=== PATIENT | male | born 1965 | race Caucasian/White ===

== ENCOUNTER → 2017-08-12 | Outpatient (CLI) | payer OTHER ==
[~2017-08-12] MED LIST: REGADENOSON 0.4 MG/5 ML DISP.SYRIN. IV
== END | disposition home or self-care (01) ==
LOC: PCVCIMAG 09:53
DX: R06.09 Other forms of dyspnea (principal); M79.609 Pain in unspecified limb; I10 Essential (primary) hypertension; F17.210 Nicotine dependence, cigarettes, uncomplicated; Z82.49 Family history of ischemic heart disease and other diseases of the circulatory system
CPT/HCPCS: 78452; 93017; 93306; A9500; J2785

== ENCOUNTER → 2017-08-19 | Outpatient (CLI) | payer OTHER ==
[~2017-08-19] MED LIST changes: +DIAZEPAM 10 MG TABLET.; +EPINEPHrine 1 MG/ML VIAL; +HEPARIN SODIUM 5,000 UNIT/ML VIAL for PCVC.; +HEPARIN for ARTERIAL LINE 1,500 ML; +IODIXANOL 270 MG/ML 100 ML VIAL.; +IOHEXOL 350 MG/ML 100 ML VIAL.; +IV NORMAL SALINE 500ML BAG 500 ML; +LIDOCAINE 1% Multi-Dose 50 ML VIAL.; +MIDAZOLAM HCL/PF 2 MG/2 ML VIAL.; -REGADENOSON 0.4 MG/5 ML DISP.SYRIN. IV; +WATER FOR INJECTION,STERILE 20 ML VIAL. IJ; +ceFAZolin SODIUM 1 GM VIAL; +fentaNYL PF VIAL 100 MCG/2 ML VIAL; +hydrALAZINE 20 MG/ML VIAL.
== END | disposition home or self-care (01) ==
LOC: PCVCIMAG 08:23
DX: I25.10 Atherosclerotic heart disease of native coronary artery without angina pectoris (principal); I70.248 Atherosclerosis of native arteries of left leg with ulceration of other part of lower leg; L97.829 Non-pressure chronic ulcer of other part of left lower leg with unspecified severity; I70.291 Other atherosclerosis of native arteries of extremities, right leg; I70.1 Atherosclerosis of renal artery; I10 Essential (primary) hypertension; I87.1 Compression of vein
CPT/HCPCS: 36246; 36252; 75716; 76937; 93458; 93970; 99152; 99153; C1751; C1760; C1769; C1894; J0171; J0360; J0690; J1644; J2250; J3010; J7040; Q9967

== ENCOUNTER → 2017-08-20 | Outpatient (CLI) | payer OTHER ==
[~2017-08-20] MED LIST changes: +ASPIRIN 325 MG TABLET; +CLOPIDOGREL BISULFATE 75 MG TABLET; -EPINEPHrine 1 MG/ML VIAL; -HEPARIN for ARTERIAL LINE 1,500 ML; -IODIXANOL 270 MG/ML 100 ML VIAL.; +IOHEXOL 300 MG/ML 100ML VIAL.; -IOHEXOL 350 MG/ML 100 ML VIAL.; -LIDOCAINE 1% Multi-Dose 50 ML VIAL.; -hydrALAZINE 20 MG/ML VIAL.
== END | disposition home or self-care (01) ==
LOC: PCVCINTER 11:11
DX: I87.1 Compression of vein (principal); I87.2 Venous insufficiency (chronic) (peripheral); I87.303 Chronic venous hypertension (idiopathic) without complications of bilateral lower extremity
CPT/HCPCS: 36012; 37238; 37239; 37252; 37253; 75822; 75825; 76937; 99152; 99153; C1725; C1751; C1753; C1769; C1876; C1894; J0690; J1644; J2250; J3010; J7040; Q9967

== ENCOUNTER → 2017-09-23 | Outpatient (CLI) | payer OTHER | END | disposition home or self-care (01) | LOC: PCVCIMAG 10:06 | DX: I87.1 Compression of vein (principal); I10 Essential (primary) hypertension; I25.10 Atherosclerotic heart disease of native coronary artery without angina pectoris; E78.00 Pure hypercholesterolemia, unspecified; Z79.899 Other long term (current) drug therapy; Z79.82 Long term (current) use of aspirin | CPT/HCPCS: 93970; 93976; G0463 ==

== ENCOUNTER → 2018-06-02 | Outpatient (CLI) | payer OTHER ==
--- NOTE | 2018-06-02 09:02 | PCVCIMAG ---
EXAM: VENOUS DUPLEX INFERIOR VENA CAVA AND BILATERAL ILIAC VEINS INDICATION: Leg pain and swelling. FINDINGS: Inferior vena cava: IVC is patent where visualized. Right iliac veins: The common iliac and external iliac veins are patent with good flow throughout prior stents. The common femoral vein is patent. Left iliac veins: The common and external iliac veins are patent with satisfactory flow. Common femoral vein is patent. IMPRESSION: Inferior vena cava, right and left iliac veins, and right and left common femoral veins are patent without significant stenosis, scarring, or extrinsic compression. Previous right common and external iliac vein stents maintaining satisfactory patency. LOC:[id number]
== END | disposition home or self-care (01) ==
LOC: PCVCIMAG 08:20
PROVIDERS: ATTEND Nuclear Medicine Nuclear Cardiology
DX: I87.1 Compression of vein (principal); M79.89 Other specified soft tissue disorders
CPT/HCPCS: 93976

== ENCOUNTER → 2018-12-30 | Outpatient (CLI) | payer OTHER ==
--- NOTE | 2018-12-30 16:50 | PCVCIMAG ---
APPROVED REPORT Study performed: 12/30/2018 15:31:03 Exam: Stress Echocardiogram Indication: CAD s/p PCI, Chest pain, obesity, htn Patient Location: Echo lab Stress Nurse: Emily Ascencio RN Status: routine Ht: 5 ft 10 in HR: 78 bpm BP: 124/68 mmHg Rhythm: NSR Procedure The patient underwent an Exercise Stress Test using the [facility]ilo Protocol. Blood pressure, heart rate, and EKG were monitored. An Echocardiogram was performed by fisheries technician in four stages in quad fashion. At peak stress, four selected images were obtained and placed side by side with resting images for comparison. Stress Test Details Stress Test: Exercise stress testing was performed using a Nilo protocol. HR Resting HR: 78 bpmMax Heart Rate (APMHR): 166 bpm Max HR Achieved: 148 bpmTarget HR (85% APMHR): 141 bpm % of APMHR: 89 Recovery HR: 96 bpm HR response to stress: Normal HR response to stress BP Resting BP: 124/68 mmHg Max BP: 164/86 mmHg Recovery BP: 136/74 mmHg BP response to stress: Normal blood pressure response to stress. ECG Resting ECG: Sinus Rhythm Stress ECG: Sinus Rhythm ST Change: Normal Arrhythmia: occasional PVCs Recovery ECG: Sinus Rhythm Recovery ST Change: Normal Recovery Arrhythmia: occasional PVC Clinical Reason for Termination: Maximal effort Stress Symptoms: Dyspnea, non-limiting chest pain Exercise duration: 6 min 22 sec Highest Stage Achieved: Stage 3: 3.4 mph at 14% grade. Exercise capacity: 8.1 METs Overall Exercise Capacity for Age: below Average Scale: Sedentary Angina Score: Non-Limiting Pre-Stress Echo The resting Echocardiogram showed normal left ventricular contractility with an estimated Ejection Fraction of about 50-55%. Normal wall motion in all segments on baseline images. Post-Stress Echo The stress Echocardiogram showed normal left ventricular contractility with an estimated Ejection Fraction of about 60-65%. Normal augmentation of wall motion in all segments on post stress images. Clinical No ECG evidence for ischemia. Chest pain at rest that did not significantly worsen with exertion. Conclusion Clinical Response: Equivocal- non-limiting chest pain Exercise Capacity: Below Average Stress ECG Response: Non-ischemic Stress Echo Images: Non-ischemic The left ventricle is normal in size and wall thickness in both the rest and stress images. Trace tricuspid regurgitation with PAP of 38 mmHg and trace mitral regurgitation. Otherwise normal color doppler. No stenosis present on pulmonic, mitral, tricuspid or aortic valves. Other Information Study Quality: Adequate <Conclusion> The left ventricle is normal in size and wall thickness in both the rest and stress images. Trace tricuspid regurgitation with PAP of 38 mmHg and trace mitral regurgitation. Otherwise normal color doppler. No stenosis present on pulmonic, mitral, tricuspid or aortic valves.
== END | disposition home or self-care (01) ==
LOC: PCVCIMAG 15:14
PROVIDERS: ATTEND Internal Medicine Cardiovascular Disease
DX: R07.9 Chest pain, unspecified (principal); E78.5 Hyperlipidemia, unspecified; I25.10 Atherosclerotic heart disease of native coronary artery without angina pectoris; I10 Essential (primary) hypertension; E66.9 Obesity, unspecified
CPT/HCPCS: 93325; 93351